=== PATIENT | male | born 1960 | race Caucasian/White ===

== ENCOUNTER 2018-01-14 18:20 | Emergency (ER) | payer MEDICARE, OTHER ==
[~2018-01-14] VITALS: Ht 182.9 cm; Wt 88.6 kg
[~2018-01-14 18:20] MED LIST: CEPH250T PO; IBUP-1986 PO; ONDA8TAB6 PO; OXYC-145 PO
[2018-01-14 20:10] LABS: BASOPHILS % (AUTO) 0.6 % (0-1); EOSINOPHILS # (AUTO) 0.3 X10'3 (0-0.9); EOSINOPHILS % (AUTO) 4.4 % (0-6); HEMATOCRIT 40.3 % (42.0-52.0); HEMOGLOBIN 13.8 g/dl (14.0-17.9); LYMPHOCYTES # (AUTO) 2.5 X10'3 (1.1-4.8); LYMPHOCYTES % (AUTO) 34.9 % (21-51); MEAN CORPUSCULAR HEMOGLOBIN 29.8 PG (27.0-31.0); MEAN CORPUSCULAR HGB CONC 34.2 % (33.0-36.5); MEAN CORPUSCULAR VOLUME 87.1 FL (78-98); MEAN PLATELET VOLUME 8.8 FL (7.4-10.4); MONOCYTES # (AUTO) 0.7 X10'3 (0-0.9); MONOCYTES % (AUTO) 10.3 % (2-12); NEUTROPHILS # (AUTO) 3.5 X10'3 (1.8-7.7); NEUTROPHILS % (AUTO) 49.8 % (42-75); PLATELET COUNT 186 X10'3 (140-440); RED BLOOD COUNT 4.63 X10'6 (4.70-6.10); RED CELL DISTRIBUTION WIDTH 13.4 % (11.5-14.5); WHITE BLOOD COUNT 7.1 X10'3 (4.5-11.0)
[2018-01-14 20:36] LABS: ALANINE AMINOTRANSFERASE 41 U/L (12-78); ALBUMIN/GLOBULIN RATIO 0.9 (1.1-1.5); ALKALINE PHOSPHATASE 100 IU/L (46-116); ANION GAP 3 (8-16); ASPARTATE AMINO TRANSFERASE 25 U/L (10-37); BILIRUBIN,TOTAL 0.4 MG/DL (0.1-1.0); BLOOD UREA NITROGEN 16 MG/DL (7-18); BUN/CREATININE RATIO 18.2 (5.4-32.0); CHLORIDE 110 MMOL/L (99-107); CREATININE 0.88 MG/DL (0.60-1.10); GLUCOSE 93 MG/DL (70-104); POTASSIUM 4.4 MMOL/L (3.5-5.1); SODIUM 147 MMOL/L (135-145); TOTAL CARBON DIOXIDE 33.7 MMOL/L (24-32); TOTAL PROTEIN 6.5 G/DL (6.4-8.2); eGFR 90 ML/MIN
[2018-01-14 20:37] LABS: CALCIUM 8.6 MG/DL (8.5-10.1)
[2018-01-14 22:28] VITALS: BP 136/83
== END 2018-01-14 22:31 | disposition home or self-care (01) ==
LOC: ER 18:21
DX: I87.2 Venous insufficiency (chronic) (peripheral) (principal); J45.909 Unspecified asthma, uncomplicated; F17.200 Nicotine dependence, unspecified, uncomplicated; F15.10 Other stimulant abuse, uncomplicated; Z98.890 Other specified postprocedural states; Z59.0 Homelessness; Z56.0 Unemployment, unspecified; Z88.5 Allergy status to narcotic agent; Z88.2 Allergy status to sulfonamides; Z85.828 Personal history of other malignant neoplasm of skin
CPT/HCPCS: 36415; 71045; 80053; 83880; 85025; 93005; 93970; 99285

== ENCOUNTER 2019-10-27 15:44 | Emergency (ER) | payer MEDICARE ==
[~2019-10-27] VITALS: Ht 182.9 cm; Wt 88.6 kg
[~2019-10-27 15:44] MED LIST changes: -CEPH250T PO
[2019-10-27 16:18] VITALS: BP 130/89
[2019-10-27] MEDS ORDERED: CHLO473M3 PO (16:40)
[2019-10-27] MEDS ORDERED: CLIN300C54 PO (16:40)
[2019-10-27] MEDS ORDERED: TRAM50TA2 PO (16:40)
== END 2019-10-27 17:08 | disposition home or self-care (01) ==
LOC: ER 15:45
DX: K04.7 Periapical abscess without sinus (principal); J45.909 Unspecified asthma, uncomplicated; F15.90 Other stimulant use, unspecified, uncomplicated; Z59.0 Homelessness; Z56.0 Unemployment, unspecified; Z98.890 Other specified postprocedural states; Z88.5 Allergy status to narcotic agent; Z88.2 Allergy status to sulfonamides; Z79.899 Other long term (current) drug therapy
CPT/HCPCS: 99283

== ENCOUNTER 2020-06-18 03:55 | Emergency (ER) | payer MEDICARE ==
[~2020-06-18] VITALS: Ht 182.9 cm; Wt 93.2 kg
[~2020-06-18 03:55] MED LIST changes: +CHLO473M3 PO; +CLIN300C54 PO
[2020-06-18 03:59] VITALS: BP 138/90
[2020-06-18] MEDS ORDERED: cephalexin 250mg capsule PO ONE (05:30)
[2020-06-18] MEDS ORDERED: CEPH250T PO (05:34)
== END 2020-06-18 05:59 | disposition home or self-care (01) ==
LOC: ER 03:56
DX: L02.416 Cutaneous abscess of left lower limb (principal); L02.414 Cutaneous abscess of left upper limb; L03.116 Cellulitis of left lower limb; L03.114 Cellulitis of left upper limb; L98.9 Disorder of the skin and subcutaneous tissue, unspecified; J45.909 Unspecified asthma, uncomplicated; F15.90 Other stimulant use, unspecified, uncomplicated; Z59.0 Homelessness; Z56.0 Unemployment, unspecified; Z88.5 Allergy status to narcotic agent; Z88.2 Allergy status to sulfonamides; Z79.899 Other long term (current) drug therapy
CPT/HCPCS: 99283

== ENCOUNTER 2022-10-02 15:37 | Emergency (ER) | payer OTHER ==
[~2022-10-02] VITALS: Ht 177.8 cm; Wt 86.0 kg
[~2022-10-02 15:37] MED LIST changes: +ALBU8.5H17 IH; +APIX5TAB3 PO; -CHLO473M3 PO; -CLIN300C54 PO; -IBUP-1986 PO; +NALT50TA PO; -ONDA8TAB6 PO; -OXYC-145 PO
[2022-10-02] MEDS ORDERED: ipratropium/albuterol 3ml nebule NEB ONE (16:15)
[2022-10-02] MEDS ORDERED: normal saline 1000ML IV soln IVB ONE ×2 (16:15→17:30)
[2022-10-02] MEDS ORDERED: acetaminophen 325mg tablet PO ONE (16:15)
[2022-10-02 16:43] LABS: BASOPHILS % (AUTO) 0.3 % (0-1); EOSINOPHILS % (AUTO) 0.1 % (0-6); HEMOGLOBIN 14.9 g/dl (14.0-17.9); LYMPHOCYTES # (AUTO) 0.4 X10'3 (1.1-4.8); LYMPHOCYTES % (AUTO) 6.2 % (21-51); MEAN CORPUSCULAR HGB CONC 33.2 g/dL (33.0-36.5); MEAN CORPUSCULAR VOLUME 87.6 FL (78-98); MEAN PLATELET VOLUME 9.5 FL (7.4-10.4); MONOCYTES # (AUTO) 0.4 X10'3 (0-0.9); MONOCYTES % (AUTO) 6.5 % (2-12); NEUTROPHILS % (AUTO) 86.9 % (42-75); PLATELET COUNT 154 X10'3 (140-440); RED BLOOD COUNT 5.14 X10'6 (4.70-6.10); RED CELL DISTRIBUTION WIDTH 14.4 % (11.5-14.5); WHITE BLOOD COUNT 6.9 X10'3 (4.5-11.0)
[2022-10-02 16:54] LABS: ALANINE AMINOTRANSFERASE 21 U/L (12-78); ALBUMIN 3.3 G/DL (3.4-5.0); ALBUMIN/GLOBULIN RATIO 0.8 (1.1-1.5); ALKALINE PHOSPHATASE 55 IU/L (46-116); ANION GAP 6 (8-16); ASPARTATE AMINO TRANSFERASE 27 U/L (10-37); BILIRUBIN,TOTAL 0.6 MG/DL (0.1-1.0); BLOOD UREA NITROGEN 12 MG/DL (7-18); BUN/CREATININE RATIO 11.9 (5.4-32.0); CALCIUM 8.8 MG/DL (8.5-10.1); CHLORIDE 96 MMOL/L (99-107); CREATININE 1.01 MG/DL (0.60-1.10); GLUCOSE 127 MG/DL (70-104); SODIUM 132 MMOL/L (135-145); TOTAL CARBON DIOXIDE 30.3 MMOL/L (24-32); TOTAL PROTEIN 7.2 G/DL (6.4-8.2); eGFR 75 ML/MIN
[2022-10-02] MEDS ORDERED: ibuprofen tablet 400 MG TABLET PO ONE (17:55)
[2022-10-02] MEDS ORDERED: iohexol 350MG/ML 100ml bottle IV ONE (17:58)
[2022-10-02 18:33] VITALS: BP 117/85
== END 2022-10-02 21:01 | disposition home or self-care (01) ==
LOC: ER 15:37
DX: J10.1 Influenza due to other identified influenza virus with other respiratory manifestations (principal); Z20.822 Contact with and (suspected) exposure to COVID-19; I27.82 Chronic pulmonary embolism; F15.10 Other stimulant abuse, uncomplicated; R06.02 Shortness of breath; R11.0 Nausea; R19.7 Diarrhea, unspecified; J45.909 Unspecified asthma, uncomplicated; F17.200 Nicotine dependence, unspecified, uncomplicated; F12.90 Cannabis use, unspecified, uncomplicated; Z85.9 Personal history of malignant neoplasm, unspecified; Z56.0 Unemployment, unspecified; Z88.5 Allergy status to narcotic agent; Z88.2 Allergy status to sulfonamides; Z88.8 Allergy status to other drugs, medicaments and biological substances; Z79.899 Other long term (current) drug therapy
CPT/HCPCS: 36415; 71045; 71275; 80053; 84484; 85025; 85379; 87502; 87503; 87635; 93005; 94640; 96360; 96361; 99285; C9803; J3490; J7030; Q9967; 94760